=== PATIENT | male | born 1985 | race Caucasian/White ===

== ENCOUNTER 2017-11-07 09:36 | Emergency (ER) | payer OTHER ==
[2017-11-07] MEDS ORDERED: IPRATROPIUM-ALBUTEROL 3 ML NEB INHALATION STA (10:46)
[2017-11-07] MEDS ORDERED: SODIUM CHLORIDE 0.9% 500 ML IV STA (10:52)
[2017-11-07] MEDS ORDERED: ACETAMINOPHEN TAB 500 MG TAB PO STA (10:52)
[2017-11-07] MEDS ORDERED: methylPREDNISolone SOD SUCCI 125 MG/2 ML VIAL IV STA (10:52)
[2017-11-07] MEDS ORDERED: IBUPROFEN 600 MG STARTER PACK 4 TAB BTL PO STA (10:52)
--- NOTE | 2017-11-07 11:14 | ED ---
ENT HPI - General Chief complaint: ENT Stated complaint: Dizzy/congestion Time Seen by Provider: 11/07/17 09:59 Source: patient, RN notes reviewed, old records reviewed Mode of arrival: ambulatory Limitations: no limitations - History of Present Illness Initial comments: Patient is a 32 year old male presents today with CC of cough, congestion, dizziness. Patient has been taking OTC treatment with little relief. Patient denies any other symptoms. Patient reports no chest pain, shortness of breath. Patient has no previous cardiac history. Patient reports that he has had a productive cought. - Related Data Home Medications Medication Instructions Recorded Confirmed Ibuprofen [Motrin Ib] 1,600 mg PO Q12H PRN 11/07/17 11/07/17 Previous Rx's Medication Instructions Recorded Albuterol Inhaler [Ventolin Hfa 1 - 2 puff INHALATION RT-Q6H PRN 11/07/17 Inhaler] #1 inhaler Levofloxacin [Levaquin] 750 mg PO DAILY #5 tab 11/07/17 predniSONE 50 mg PO DAILY #5 tablet 11/07/17 Allergies Allergy/AdvReac Type Severity Reaction Status Date / Time No Known Allergies Allergy Verified 11/07/17 09:40 Review of Systems ROS Statement: Those systems with pertinent positive or pertinent negative responses have been documented in the HPI. ROS Other: All systems not noted in ROS Statement are negative. Past Medical History Past Medical History: No Reported History History of Any Multi-Drug Resistant Organisms: None Reported Past Surgical History: Orthopedic Surgery Additional Past Surgical History / Comment(s): izabela to left femur and right tib/ fib Past Psychological History: No Psychological Hx Reported Smoking Status: Current every day smoker Past Alcohol Use History: Occasional Past Drug Use History: None Reported General Exam - General Exam Comments Initial Comments: This is a 32 year old male, no distress. Limitations: no limitations General appearance: alert, in no apparent distress Head exam: Present: atraumatic, normocephalic, normal inspection Eye exam: Present: normal appearance, PERRL, EOMI. Absent: scleral icterus, conjunctival injection, periorbital swelling ENT exam: Present: normal exam, mucous membranes moist Neck exam: Present: normal inspection. Absent: tenderness, meningismus, lymphadenopathy Respiratory exam: Present: normal lung sounds bilaterally. Absent: respiratory distress, wheezes, rales, rhonchi, stridor Cardiovascular Exam: Present: regular rate, normal rhythm, normal heart sounds. Absent: systolic murmur, diastolic murmur, rubs, gallop, clicks GI/Abdominal exam: Present: soft, normal bowel sounds. Absent: distended, tenderness, guarding, rebound, rigid Extremities exam: Present: normal inspection, full ROM, normal capillary refill. Absent: tenderness, pedal edema, joint swelling, calf tenderness Back exam: Present: normal inspection Neurological exam: Present: alert, oriented X3, CN II-XII intact Psychiatric exam: Present: normal affect, normal mood Skin exam: Present: warm, dry, intact, normal color. Absent: rash Course Vital Signs 11/07/17 11/07/17 11/07/17 09:40 09:48 11:03 Temperature 98.7 F Pulse Rate 114 H 84 Respiratory 20 20 Rate Blood Pressure 119/77 O2 Sat by Pulse 96 Oximetry 11/07/17 11/07/17 11:20 12:24 Temperature 98 F Pulse Rate 92 94 Respiratory 18 Rate Blood Pressure 120/63 O2 Sat by Pulse 95 Oximetry Medical Decision Making - Medical Decision Making Patient is a 32 year old male presents with sinus congestion, cough, and dizziness. Patient was given IV fluids, CXR and breathing treatment. Patient reports he feels better. AT this time patient continued to have productive cough , concern for bronchitis. Paitent will be treated with steriods, antibiotics, and close follow up with PCP. REturn parameters disucssed. - Lab Data Result diagrams: 11/07/17 10:50 11/07/17 10:50 Lab Results 11/07/17 11/07/17 Range/Units 10:50 10:50 WBC 6.9 (3.8-10.6) k/uL RBC 5.39 (4.30-5.90) m/uL Hgb 16.0 (13.0-17.5) gm/dL Hct 48.7 (39.0-53.0) % MCV 90.4 (80.0-100.0) fL MCH 29.7 (25.0-35.0) pg MCHC 32.9 (31.0-37.0) g/dL RDW 12.7 (11.5-15.5) % Plt Count 183 (150-450) k/uL Neutrophils % 67 % Lymphocytes % 23 % Monocytes % 4 % Eosinophils % 1 % Basophils % 1 % Neutrophils # 4.6 (1.3-7.7) k/uL Lymphocytes # 1.6 (1.0-4.8) k/uL Monocytes # 0.3 (0-1.0) k/uL Eosinophils # 0.1 (0-0.7) k/uL Basophils # 0.1 (0-0.2) k/uL Sodium 135 L (137-145) mmol/L Potassium 4.8 (3.5-5.1) mmol/L Chloride 104 (98-107) mmol/L Carbon Dioxide 23 (22-30) mmol/L Anion Gap 8 mmol/L BUN 10 (9-20) mg/dL Creatinine 0.58 L (0.66-1.25) mg/dL Est GFR (CKD-EPI)AfAm >90 (>60 ml/min/1.73 sqM) Est GFR (CKD-EPI)NonAf >90 (>60 ml/min/1.73 sqM) Glucose 218 H (74-99) mg/dL Calcium 8.6 (8.4-10.2) mg/dL Total Bilirubin 0.8 (0.2-1.3) mg/dL AST 79 H (17-59) U/L ALT 93 H (21-72) U/L Alkaline Phosphatase 67 (38-126) U/L Total Protein 6.8 (6.3-8.2) g/dL Albumin 3.7 (3.5-5.0) g/dL - Radiology Data Radiology results: report reviewed CXR is negative for acute process. Disposition Clinical Impression: Dizziness, Bronchitis Disposition: HOME SELF-CARE Condition: Good Instructions: Acute Bronchitis (ED) Additional Instructions: Patient is to rest, increase fluid intake. Make sure the ear using the antibiotics and steroids as prescribed. Use inhaler as well. Continue over-the -counter medication. Return to emergency department if any alarming signs or symptoms occur. Prescriptions: Albuterol Inhaler [Ventolin Hfa Inhaler] 1 - 2 puff INHALATION RT-Q6H PRN #1 inhaler PRN Reason: Shortness Of Breath Levofloxacin [Levaquin] 750 mg PO DAILY #5 tab predniSONE 50 mg PO DAILY #5 tablet Is patient prescribed a controlled substance at d/c from ED?: No Referrals: Heaven Somers MD [Primary Care Provider] - 1-2 days Time of Disposition: 12:06
[2017-11-07 11:29] LABS: Basophils # (A) 0.1 k/uL (0-0.2); Basophils % (A) 1 %; Eosinophils # (A) 0.1 k/uL (0-0.7); Eosinophils % (A) 1 %; HCT 48.7 % (39.0-53.0); Lymphocytes # (A) 1.6 k/uL (1.0-4.8); Lymphocytes % (A) 23 %; MCH 29.7 pg (25.0-35.0); MCHC 32.9 g/dL (31.0-37.0); MCV 90.4 fL (80.0-100.0); Mean Platelet Volume 7.1; Monocytes # (A) 0.3 k/uL (0-1.0); Monocytes % (A) 4 %; Neutrophils # (A) 4.6 k/uL (1.3-7.7); Neutrophils % (A) 67 %; Platelet Count 183 k/uL (150-450); RBC 5.39 m/uL (4.30-5.90); RDW 12.7 % (11.5-15.5); WBC 6.9 k/uL (3.8-10.6)
[2017-11-07 11:36] LABS: ALT 93 U/L (21-72); AST 79 U/L (17-59); Albumin 3.7 g/dL (3.5-5.0); Alkaline Phosphatase 67 U/L (38-126); Anion Gap 8 mmol/L; Blood Urea Nitrogen 10 mg/dL (9-20); Calcium 8.6 mg/dL (8.4-10.2); Carbon Dioxide 23 mmol/L (22-30); Chloride 104 mmol/L (98-107); Glucose 218 mg/dL (74-99); Sodium 135 mmol/L (137-145); Total Bilirubin 0.8 mg/dL (0.2-1.3); Total Protein 6.8 g/dL (6.3-8.2)
[2017-11-07 11:41] LABS: Potassium 4.8 mmol/L (3.5-5.1)
--- NOTE | 2017-11-07 11:48 | XR ---
EXAMINATION TYPE: XR chest 2V DATE OF EXAM: 11/07/2017 COMPARISON: 12/10/2013 HISTORY: Chest pain TECHNIQUE: Frontal and lateral views of the chest are obtained. FINDINGS: There is no focal air space opacity. No evidence for pneumothorax. No pleural effusion. The cardiac silhouette size is within normal limits. The osseous structures are grossly intact. IMPRESSION: 1. No acute cardiopulmonary process.
[2017-11-07 12:26] VITALS: BP 120/63; PULSE 94; RESP 18; TEMP 98
== END 2017-11-07 12:27 | disposition home or self-care (01) ==
LOC: EC 09:36
DX: J40 Bronchitis, not specified as acute or chronic (principal); R42 Dizziness and giddiness; R09.81 Nasal congestion; F17.200 Nicotine dependence, unspecified, uncomplicated
CPT/HCPCS: 36415; 94640; 80053; 85025; 71046; 99284; 96374; 96361; J2930

== ENCOUNTER → 2021-12-21 | Outpatient (CLI) | payer OTHER ==
[2021-12-21 18:24] LABS: Basophils # (A) 0.07 X 10*3/uL (0.00-0.10); Basophils % (A) 0.5 %; Eosinophils # (A) 0.21 X 10*3/uL (0.04-0.35); Eosinophils % (A) 1.5 %; HCT 45.4 % (39.6-50.0); HGB 15.1 g/dL (13.0-17.0); Immature Grans, Automated 0.4 %; Lymphocytes # (A) 3.21 X 10*3/uL (0.90-5.00); Lymphocytes % (A) 22.8 %; MCH 30.8 pg (27.0-32.0); MCHC 33.3 g/dL (32.0-37.0); MCV 92.7 fL (80.0-97.0); Mean Platelet Volume 9.4 fL (9.5-12.2); Monocytes # (A) 0.96 X 10*3/uL (0.20-1.00); Monocytes % (A) 6.8 %; NRBC Per 100 WBC 0 /100 WBCS (0.0-0.0); Neutrophils # (A) 9.54 X 10*3/uL (1.80-7.70); Platelet Count 357 X 10*3/uL (140-440); RDW 12.6 % (11.5-14.5); WBC 14.05 X 10*3/uL (4.50-10.00)
[2021-12-21 18:28] LABS: Anion Gap 10.3 mmol/L (10.00-18.00); Carbon Dioxide 24.7 mmol/L (20.0-27.5); Potassium 4.3 mmol/L (3.5-5.5)
== END | disposition home or self-care (01) ==
LOC: LABPAT 11:24
PROVIDERS: ATTEND Orthopaedic Surgery
DX: Z01.812 Encounter for preprocedural laboratory examination (principal); M23.91 Unspecified internal derangement of right knee
CPT/HCPCS: 80051; 85025

== ENCOUNTER 2022-01-03 12:30 | Day surgery (SDC) | payer OTHER ==
[2022-01-01 15:28] VITALS: BMI 33.7
--- NOTE | 2022-01-03 03:21 | HP ---
HISTORY AND PHYSICAL DATE OF SURGERY: 01/03/2022 HISTORY OF PRESENT ILLNESS: Thom Alegria is a 36-year-old patient seen with progressive left knee pain. We discussed options for treatment. He elected to proceed with left knee arthroscopy. Consent obtained. PAST MEDICAL HISTORY: [id number] diabetes, hypertension. PAST SURGICAL HISTORY: ORIF of femur fracture. MEDICATIONS: 1. Metformin. 2. Farxiga. ALLERGIES: None. SOCIAL HISTORY: Denies tobacco use. PHYSICAL EVALUATION OF THE LEFT KNEE: Range of motion 0-130. He has a mild effusion. Tenderness along the lateral joint line. Positive lateral Diaz's. Ligaments stable. Hip rotation without pain. Distal neurovascular exam is intact. RADIOGRAPHS: Radiographs of the left knee reveal some moderate osteoarthritic changes along with evidence for retrograde intramedullary nail and of the femur. MRI of the left knee revealed lateral meniscal tear. IMPRESSION: 1. Internal derangement of left knee with lateral meniscal tear. 2. Hypertension. 3. Qpy-[id number] diabetes. PLAN: Left knee arthroscopy with partial lateral meniscectomy and debridement. MMODL / IJN: [id number] /
[~2022-01-03 12:30] MED LIST: DEXAMETHASONE SOD PHOSPHATE 4 MG/ML 1 ML VIAL IV ONE; HYDROmorphone 0.5 MG/0.5 ML SYRINGE IVP PRN; LACTATED RINGERS 1,000 ML IV SCH; LIDOCAINE 1% (10MG/ML) FOR IV START INTRADERMA PRN; MIDAZOLAM 2 MG/2 ML VIAL IV PRN; ONDANSETRON 4 MG/2 ML VIAL IVP ONE
[2022-01-03] MEDS ORDERED: LACTATED RINGERS 1,000 ML IV ONE (13:14)
[2022-01-03 13:41] LABS: Glucose,Whole Blood 136 mg/dL (70-110)
[2022-01-03] MEDS ORDERED: fentaNYL (PF) 50 MCG/ML 2 ML AMP ONE (14:59)
[2022-01-03] MEDS ORDERED: PROPOFOL 10 MG/ML 20 ML VIAL IV ONE (14:59)
[2022-01-03] MEDS ORDERED: LIDOCAINE 2% INJ 20 MG/ML (2 ML VIAL) ONE (14:59)
[2022-01-03] MEDS ORDERED: MIDAZOLAM 2 MG/2 ML VIAL ONE (14:59)
[2022-01-03] MEDS ORDERED: BUPIVACAINE (PF) 0.25% 30 ML VIAL SQ ONE ×2 (15:01→15:26)
--- NOTE | 2022-01-03 15:40 | P.OP ---
Date of Procedure: 01/03/22 Preoperative Diagnosis: Internal derangement left knee Postoperative Diagnosis: 1. Tear medial and lateral meniscus left knee 2. Reactive synovitis medial, lateral and suprapatellar compartments left knee Procedure(s) Performed: 1. Arthroscopic partial medial and lateral meniscectomy left knee 2. Arthroscopic partial synovectomy medial, lateral and suprapatellar compartments left knee Anesthesia: GETA, local Surgeon: Damien Kaur Estimated Blood Loss (ml): 7 Pathology: none sent Condition: stable Disposition: PACU Indications for Procedure: 36-year-old patient seen with progressive left knee pain. After treatment options were discussed, he elected to proceed with arthroscopy. Operative Findings: see description of procedure Description of Procedure: Patient was taken to the operative suite. Patient underwent a general anesthetic by the department of anesthesia. Patient was given preoperative antibiotics. The left lower extremity was placed in a well-padded arthroscopic leg frazier. The left leg was prepped and draped in the normal sterile orthopedic fashion. A lateral parapatellar and suprapatellar incision was made. Trochars were inserted. Arthroscopy was initiated. Suprapatellar pouch rev ealed diffuse thick reactive synovitis. The patellofemoral joint appeared to articulate congruently. There was no chondromalacia present. The scope was guided into the medial gutter. No loose bodies or plica were identified The scope was then guided into the medial compartment. A medial parapatellar incision was made. Trocar inserted followed by probe. There was a radial tear anterior horn medial meniscus. There was some thick reactive synovitis anteriorly as well. The osteochondral surface appeared stable with no chondromalacia present.. I performed a partial medial meniscectomy. I performed a partial synovectomy. The residual meniscus was stable. There was good decompression noted. Scope and probe were then guided into the intercondylar notch. Cruciates were identified, probed and found to be stable. The scope and probe were then guided into lateral compartment. There was a small radial tear mid body lateral meniscus. There was some thick reactive synovitis anteriorly. There was no significant chondromalacia present. I performed a partial lateral meniscectomy. I performed a partial synovectomy. The residual meniscus was stable. There was good decompression of synovitis. The scope was in guided back into the suprapatellar compartment. I introduced a motorized shaver into the suprapatellar compartment. I performed a partial synovectomy. The shaver was removed. I took one more look on the entire knee, no residual debris. Instruments were now removed from the joint. The joint was infiltrated with .25% Marcaine. Steri-Strips were applied to the portal sites. Sterile dressings were applied. The patient was placed into a MANPREET hose. No tourniquet was utilized. The patient was awakened, transferred to a bed and taken to recovery stable satisfactory condition.
[2022-01-03 15:41] VITALS: TEMP 97.1
[2022-01-03 15:50] VITALS: RESP 16
[2022-01-03 16:11] LABS: Glucose,Whole Blood 145 mg/dL (70-110)
[2022-01-03] MEDS ORDERED: HYDROcodone/APAP 5-325MG 1 EACH TAB ONE (16:39)
[2022-01-03] MEDS ORDERED: HYDROcodone/APAP 5-325MG 1 EACH TAB PO ONE (16:41)
[2022-01-03 17:04] VITALS: BP 114/75; PULSE 72
== END 2022-01-03 17:15 | disposition home or self-care (01) ==
LOC: OR 12:30
PROVIDERS: ATTEND Orthopaedic Surgery
DX: M23.301 Other meniscus derangements, unspecified lateral meniscus, left knee (principal); M23.304 Other meniscus derangements, unspecified medial meniscus, left knee; M65.862 Other synovitis and tenosynovitis, left lower leg; I10 Essential (primary) hypertension; E11.9 Type 2 diabetes mellitus without complications; M25.462 Effusion, left knee; M17.12 Unilateral primary osteoarthritis, left knee; Z79.899 Other long term (current) drug therapy; Z87.81 Personal history of (healed) traumatic fracture; Z79.84 Long term (current) use of oral hypoglycemic drugs
CPT/HCPCS: 29880; J2250; J1100; J0690; J2405; J3010; J2704; J2001